=== PATIENT | male | born 1990 | race African-American/Black ===

== ENCOUNTER 2022-10-15 13:19 | Day surgery (SDC) | payer SELFPAY ==
[2022-10-15] MEDS ORDERED: Sodium Chloride 0.9% 2.5 ML Syringe FLUSH PRN (13:39)
[2022-10-15] MEDS ORDERED: Sodium Chloride 0.9% 10 ML Syringe FLUSH PRN (13:39)
[2022-10-15] MEDS ORDERED: Sodium Chloride 0.9% 1,000 ML IV ONE ×2 (13:39→13:54)
[2022-10-15] MEDS ORDERED: Morphine 4 MG/ML Syringe IVPUSH ONE (13:58)
[2022-10-15] MEDS ORDERED: Ondansetron 4 MG/2 ML SDV IVPUSH ONE (13:58)
[2022-10-15 14:20] LABS: BASOPHILS PERCENT AUTO 0.1 % (0.0-1.5); HEMATOCRIT 45.6 % (38.0-50.0); HEMOGLOBIN 15.2 g/dL (13.0-17.0); LYMPHOCYTES ABSOLUTE AUTO 0.6 K/uL (0.6-2.4); LYMPHOCYTES PERCENT AUTO 4.4 % (16.0-40.0); MEAN CORPUSCULAR HEMOGLOBIN 27.6 pg (27.0-32.0); MEAN CORPUSCULAR HGB CONC 33.3 g/dL (31.0-37.0); MEAN CORPUSCULAR VOLUME 82.8 fL (80.0-98.0); MONOCYTES PERCENT AUTO 6.8 % (0.0-15.0); NEUTROPHILS ABSOLUTE AUTO 12.8 K/uL (1.4-5.7); NEUTROPHILS PERCENT AUTO 88.7 % (48.0-80.0); NRBC ABSOLUTE 0 K/uL; PLATELET COUNT,PLT 155 K/uL (150-400); RED BLOOD CELL COUNT 5.51 M/uL (4.50-5.90); WHITE BLOOD CELL COUNT,WBC 14.41 K/uL (4.0-11.0)
[2022-10-15 14:52] LABS: A/G RATIO 0.8 (0.9-1.6); ALBUMIN 3.6 g/dL (3.4-5.0); BILIRUBIN TOTAL 0.6 mg/dL (0.2-1.0); CALCIUM 9.2 mg/dL (8.5-10.1); CARBON DIOXIDE,CO2 30.7 mmol/L (21.0-32.0); CREATININE 1.2 mg/dL (0.8-1.3); EST CRCL DRUG DOSING (CG) 98.95 mL/min; POTASSIUM,K 4.1 mmol/L (3.5-5.1); PROTEIN TOTAL,TP 8.1 g/dL (6.4-8.2)
[2022-10-15 14:55] LABS: LACTIC ACID 1.4 mmol/L (0.4-2.0)
[2022-10-15] MEDS ORDERED: Piperacillin/Tazobactam 3.375 GM in Sodium Chloride 0.9% 100 ML IV ONE (15:01)
[2022-10-15 16:05] LABS: APPEARANCE,URINE CLEAR; BILIRUBIN,URINE NEGATIVE (NEGATIVE); COLOR,URINE YELLOW; GLUCOSE,URINE NEGATIVE (NEGATIVE); KETONES,URINE NEGATIVE (NEGATIVE); LEUKOCYTE ESTERASE,URINE NEGATIVE (NEGATIVE); NITRITE,URINE NEGATIVE (NEGATIVE); OCCULT BLOOD,URINE SMALL (NEGATIVE); PROTEIN,URINE NEGATIVE (NEGATIVE)
[2022-10-15 16:13] LABS: BACTERIA,URINE FEW (NEGATIVE); EPITHELIAL CELLS,URINE OCCASIONAL (NONE-FEW); SQUAMOUS EPITHELIAL CELLS,UR OCCASIONAL; WBC,URINE NONE SEEN (0-5/HPF)
[2022-10-15] MEDS ORDERED: Iopamidol 755 Mg/ML 100 ML Bottle IVPUSH ONE (16:16)
[2022-10-15] MEDS ORDERED: fentaNYL 100 MCG/2 ML SDV ONE ×2 (17:57→18:47)
[2022-10-15] MEDS ORDERED: Propofol 200 MG/20 ML SDV ONE ×2 (17:57→18:24)
[2022-10-15] MEDS ORDERED: Lidocaine 2% 5 ML SDV ONE (17:59)
[2022-10-15] MEDS ORDERED: Ondansetron 4 MG/2 ML SDV ONE (17:59)
[2022-10-15] MEDS ORDERED: Rocuronium Bromide 50 MG/5 ML Syringe ONE (17:59)
[2022-10-15] MEDS ORDERED: Dexamethasone 4 MG/ML 5 ML MDV ONE (17:59)
[2022-10-15] MEDS ORDERED: Bupivacaine 0.25% 30 ML SDV ONE (18:12)
[2022-10-15] MEDS ORDERED: Phenylephrine HCl 0.5 MG/5 ML AMP ONE (18:35)
[2022-10-15] MEDS ORDERED: Sugammadex Sodium 200 MG/2 ML VIAL ONE (19:00)
[2022-10-15] MEDS ORDERED: Ketorolac 30 MG/ML SDV ONE (19:00)
[2022-10-15] MEDS ORDERED: Magnesium Sulfate (4.06 MEQ/ML) 5 GM/10 ML SDV IV ONE (19:15)
[2022-10-15] MEDS ORDERED: Dexmedetomidine 200 MCG/2 ML SDV ONE (19:23)
[2022-10-15] MEDS ORDERED: HYDROmorphone 1 MG/ML Syringe IVPUSH PRN (19:24)
[2022-10-15] MEDS ORDERED: Ondansetron 4 MG/2 ML SDV IVPUSH PRN (19:24)
[2022-10-15] MEDS ORDERED: Lactated Ringers 1,000 ML IV SCH (19:30)
[2022-10-15] MEDS: Piperacillin/Tazobactam 3.375 GM in Sodium Chloride 0.9% 100 ML IV SCH (22:26)
[2022-10-15] MEDS: Acetaminophen/HYDROcodone 325-5 MG Tab PO PRN (22:38)
[2022-10-16] MEDS: Piperacillin/Tazobactam 3.375 GM in Sodium Chloride 0.9% 100 ML IV SCH (04:48)
[2022-10-16] MEDS: Acetaminophen/HYDROcodone 325-5 MG Tab PO PRN (08:21)
== END 2022-10-16 09:00 | disposition home or self-care (01) ==
LOC: MW.ED 13:19 → MW.SDS 17:49 → MW.MS 19:02 → MW.SDS 10-16 09:00
PROVIDERS: ATTEND Surgery
DX: K35.33 Acute appendicitis with perforation, localized peritonitis, and gangrene, with abscess (principal); F17.210 Nicotine dependence, cigarettes, uncomplicated; Z98.890 Other specified postprocedural states
CPT/HCPCS: 36415; 44970; 74177; 80053; 81001; 83605; 83690; 85025; 87040; A9270; J0131; J1100; J1885; J2270; J2370; J2405; J2543; J2704; J3010; J3475; J3490; J7030; J7120; Q9967; 00840; 96361; 96365; 96375; 99284-25; 99285